=== PATIENT | female | born 1960 | race Caucasian/White ===

== ENCOUNTER → 2019-01-31 12:30 | Outpatient (CLI) | payer OTHER, SELFPAY ==
[2015-08-13 09:16] VITALS: BMI 30.9
--- NOTE | 2019-01-31 12:37 | RAD_ITS ---
STUDY: X-RAY CHEST REASON FOR EXAM: Female, 58 years old. Dyspnea on exertion TECHNIQUE: PA and lateral COMPARISON: None. FINDINGS: The lungs are clear and expanded. There is no demonstrated pleural abnormality. Normal size heart. Normal mediastinum. Mild left hilar asymmetry. Normal visualized pulmonary arteries. Normal visualized aortic arch and descending thoracic aorta. Dorsal spine demonstrates mild scoliosis and degenerative change. Normal visualized ribs, clavicles, and shoulders. There is no demonstrated abnormality of the visualized soft tissue structures of the upper abdomen. RAD/Chest PA and Lateral IMPRESSION: Mild left hilar asymmetry possibly representing enlarged nodes. CT would be helpful for more definitive evaluation. No acute cardiopulmonary pathology Electronically Signed: Feliz Rojas MD at 19:29 EDT , Service support ,
[2019-01-31 14:10] LABS: Absolute Lymphocyte Count 1.25 X10^3/uL (0.83-4.51); Basophil# 0.04 X10^3/uL; Basophil% 0.8 % (0-1); Eosinophil# 0.13 X10^3/uL; Eosinophils% 2.7 % (0-5); Hemoglobin 12.9 g/dL (12.0-15.0); Lymphocyte # 1.25 X10^3/ul (4.0); Lymphocyte % 25.7 % (19-41); Mean Corp Hgb Conc 33.9 g/dL (32-36); Mean Corpuscular Hgb 29.7 pg (27.0-32.0); Mean Corpuscular Volume 87.6 fL (81-99); Mean Platelet Vol. 10.1 fl (6.2-12.0); Monocyte# 0.47 X10^3/uL; Monocyte% 9.7 % (0-10); NRBC Flagged by Analyzer 0 % (0-5); Neutrophil # 2.97 X10^3/uL (2.7-7.7); Neutrophil % 60.9 % (47-70); Platelet Count 261 K/mm3 (150-450); RBC Distribution Width SD 41.1 fl (35.1-43.9); Red Blood Count 4.34 M/mm3 (4.2-5.4); White Blood Count 4.9 K/mm3 (4.4-11.0)
[2019-01-31 14:30] LABS: ALB/GLOB Ratio 1.2 RATIO (0.9-2.4); AST(SGOT) 23 U/L (15-37); Alanine Aminotransfer ALT/SGPT 48 U/L (13-56); Albumin, Serum 3.8 g/dL (3.2-5.0); Alkaline Phosphatase 111 U/L (45-117); Anion Gap 7 (5-15); BUN 17 mg/dL (7-18); Calcium,Total 8.7 mg/dL (8.5-10.1); Chloride 110 mmol/L (98-107); Cholesterol 232 mg/dL (200); Creatinine, Serum 0.63 mg/dL (0.55-1.02); EST Glomerular Filtration Rate 104 mL/min (>60); Est Glom Filt Rate - Afr Amer 126 mL/min (>60); Ferritin 67 ng/mL (8-252); Free T3 2.2 pg/mL (2.18-3.98); Globulin 3.3 g/dL (2.2-4.2); Glucose 88 mg/dL (74-106); High Density Lipoprotein 54 mg/dL; Magnesium 2.1 mg/dL (1.6-2.6); Potassium 4.1 mmol/L (3.5-5.1); Protein, Total 7.1 g/dL (6.4-8.2); Sodium Level 144 mmol/L (136-145); T4 Free Direct 0.92 ng/dL (0.76-1.46); Thyroid Stim Hormone (TSH) 2.36 uIU/mL (0.358-3.74); Triglycerides 207 mg/dL; Very Low Density Lipoprotein 41 mg/dL (5-40)
[2019-02-01 13:02] LABS: Thyroid Peroxidase AB 10 IU/mL (0-34)
[2019-02-02 09:32] LABS: ANTINUCLEAR ANTIBODIES DIRECT Positive (Negative)
[2019-02-05 13:26] LABS: CRP 6.19 mg/L (0.0-3.0)
[2019-02-06 20:08] LABS: Angiotensin Convert Enzyme 44 U/L (14-82); Anti-Centromere B Ab <0.2 AI (0.0-0.9); Anti-Chromatin 0.5 AI (0.0-0.9); Anti-Jo <0.2 AI (0.0-0.9); Anti-Scleroderma-70 AB <0.2 AI (0.0-0.9); RNP Ab 0.3 AI (0.0-0.9); SJOGREN'S Anti-SS-A test > 8.0 AI (0.0-0.9); SJOGREN'S Anti-SS-B test 0.2 AI (0.0-0.9); Smith Ab 2.5 AI (0.0-0.9)
[2019-02-07 13:11] LABS: Anti-dsDNA Ab <1 IU/mL (0-9)
== END ==
PROVIDERS: Family Provider Family Medicine; PCP Family Medicine; Referring Provider Family Medicine; Visit Provider Family Medicine
DX: R06.09 Other forms of dyspnea (principal); E07.9 Disorder of thyroid, unspecified; R00.2 Palpitations; M19.049 Primary osteoarthritis, unspecified hand; R59.0 Localized enlarged lymph nodes; R76.8 Other specified abnormal immunological findings in serum
CPT/HCPCS: 36415; 71046; 80053; 80061; 82164; 82728; 83735; 84238; 84439; 84443; 84481; 85025; 86038; 86140; 86225; 86235; 86376

== ENCOUNTER → 2019-02-15 14:00 | Outpatient (CLI) | payer OTHER, SELFPAY ==
--- NOTE | 2019-02-15 14:11 | CT_ITS ---
STUDY: CT CHEST WITH CONTRAST REASON FOR EXAM: Female, 58 years old. Abnormal chest x-ray RADIATION DOSAGE (If Supplied By Facility): CTDIvol = ( 13.57 ) mGy, DLP = ( 438.86 ) mGycm TECHNIQUE: Transaxial imaging was performed following intravenous administration of 100 IV Isovue 370. Individualized dose optimization techniques were used for this CT. COMPARISON: 01/31/2019 FINDINGS: Ruptured right breast implant. The lungs are normal. There is no demonstrated pleural abnormality. Normal heart and pericardium. Normal mediastinum. Normal hilar regions. Normal enhanced pulmonary arteries. Normal aorta arch and descending thoracic aorta. Normal osseous structures. There is no demonstrated abnormality of the visualized upper abdomen. CT/Chest WITH Contrast IMPRESSION: Normal enhanced CT Chest examination. No left hilar mass as suggested on recent chest x-ray. Electronically Signed: Inocente Milton MD at 15:21 EDT Tel , Service support ,
== END ==
PROVIDERS: Family Provider Family Medicine; PCP Family Medicine; Referring Provider Family Medicine; Visit Provider Family Medicine
DX: R59.0 Localized enlarged lymph nodes (principal)
CPT/HCPCS: 71260; Q9967

== ENCOUNTER → 2020-05-16 14:57 | Outpatient (CLI) | payer OTHER, SELFPAY ==
[2020-05-16 13:00] VITALS: BMI 32.1
== END ==
PROVIDERS: PCP Family Medicine; Referring Provider Physician Assistant Medical; Visit Provider Physician Assistant Medical
DX: Z11.59 Encounter for screening for other viral diseases (principal)
CPT/HCPCS: 87635; U0003

== ENCOUNTER 2020-09-05 22:31 | Emergency (ER) | payer OTHER, SELFPAY ==
[2020-05-16 13:00] VITALS: BMI 32.1
[2020-09-05 22:32] VITALS: BP 134/74; PULSE 82; RESP 16; TEMP 35.9; O2SAT 97; BMI 29.2
--- NOTE | 2020-09-05 22:47 | RAD_ITS ---
STUDY: X-RAY - RIGHT HAND REASON FOR EXAM: Female, 60 years old. dog bite TECHNIQUE: 3 view(s) of the hand. COMPARISON: None. FINDINGS: Normal radiocarpal articulation. Normal distal radioulnar joint. Normal visualized carpal bones. Normal carpal articulations Normal carpometacarpal articulation of the thumb. Normal second through fifth carpometacarpal joints. Normal metacarpi. No visualized fracture. Normal joints. Minor cortical spurring seen in several digits. Soft tissue swelling and lucency seen adjacent to the radius could be related to direct trauma/laceration injury. RAD/Hand Min 3 Views IMPRESSION: Soft tissue swelling and lucency seen adjacent to the radius could be related to direct trauma/laceration injury. Electronically Signed: Idris Lerma MD at 23:12 EDT , Service support ,
--- NOTE | 2020-09-05 22:47 | ED.VIS.GEN ---
History of Present Illness Chief Complaint: Bite Informant: Patient Onset: Today Current Severity: Mild Maximum Severity: Mild Narrative: Patient presents with dog bite to the right hand. 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 She was bit by an older dog. She has 3 injuries to her right hand. Patient is right-hand dominant. Past Medical History - Allergies and Home Meds Allergies/Adverse Reactions: Allergies No Known Allergies Allergy (Verified 09/05/20 22:36) Primary Care Physician: Joseluis Nelson MD [Primary Care Provider] - Past Medical History: None Smoking Status: Never smoker Review of Systems General: Denies: Chills, Fever Eyes: Denies: Visual changes - bilaterally ENT: Denies: Bilateral ear pain Cardiovascular: Denies: Chest pain Respiratory: Denies: Dyspnea, Cough Gastrointestinal: Denies: Abdominal pain Musculoskeletal: Reports: Extremity Pain Skin: Reports: Wounds Neurological: Denies: Headache, Weakness, Parasthesia Hematologic: Denies: Easy bruising, Easy bleeding Allergy: Denies: Uticaria Physical Exam Vital Signs/Narrative: Vital Signs Temp Pulse Resp BP Pulse Ox 09/05/20 22:32 96.7 F L 82 16 134/74 H 97 Inital Vital Signs reviewed: Yes General: Well nourished, Well developed Head: Normocephalic Cardiovascular: Regular rate, Regular rhythm Respiratory: No distress Extremities: - - Patient has 2 linear lacerations to the back of her right hand. One is measuring 1.5 cm and the other measures 0.75 cm. There is a 0.5 cm long abrasion to the extensor surface of the right fourth finger at the PIP joint. Full range of motion without difficulty. Neurological: Alert, Oriented x3, Normal Strength, Normal Sensation Psychological: Normal affect Diagnostic/Tx/Re-eval Right hand x-ray per my review reveals no evidence of foreign body. No bony injury. - Medical Decision Making Right hand wounds are cleansed. The larger wound is closed with a Steri-Strip. Patient is given a dose of Augmentin here and we get a prescription for 3 days of Augmentin at home. Tetanus is up-to-date. ED Disposition - Plan for ED Patient: Disposition: Home or Assisted Living Diagnosis: Dog bite of hand Instructions: ED Dog Bite Prescriptions: Amox/Clavulanate Tablet [Augmentin Tablet] 875 mg PO Q12H #6 tablet Referrals: Joseluis Nelson MD [Primary Care Provider] - [facility] [GROUP OF PHYSICIANS] -
[2020-09-05] MEDS: Amox/Clavulanate 875 MG Tablet PO (23:11)
[2020-09-05 23:49] VITALS: RESP 16
== END 2020-09-05 23:49 | disposition home or self-care (01) ==
PROVIDERS: Emergency Provider Emergency Medicine; PCP Family Medicine
DX: S61.451A Open bite of right hand, initial encounter (principal); W54.0XXA Bitten by dog, initial encounter
CPT/HCPCS: 73130; 99282

== ENCOUNTER 2022-02-24 08:26 | Emergency (ER) | payer OTHER, SELFPAY ==
[2022-02-24 08:26] VITALS: BP 108/71; PULSE 78; RESP 16; TEMP 36.6; O2SAT 100; BMI 30.2
--- NOTE | 2022-02-24 08:50 | RAD_ITS ---
STUDY: X-RAY - RIGHT ANKLE REASON FOR EXAM: Right ankle injury. TECHNIQUE: 4 view(s) of the ankle. COMPARISON: None. FINDINGS: Normal visualized distal tibia and fibula. There is a small corticated ossicle at the distal aspect of the medial malleolus, likely from remote injury. Normal tibiotalar articulation and ankle mortise. There is a prominent osseous erosion of the posterior aspect of the posterior tuberosity of the calcaneus. There is a small os trigonum. The visualized subtalar, talonavicular, calcaneocuboid and tarsal articulations are normal. There is soft tissue swelling overlying the lateral malleolus. RAD/Ankle min 3 Views IMPRESSION: Prominent osseous erosion of the posterior tuberosity of the calcaneus, possibly representing osteomyelitis. Soft tissue swelling. Small ossicle at the distal aspect of the medial malleolus. Electronically Signed: Jreemy Bassett MD at 9:40 EDT ,
--- NOTE | 2022-02-24 08:51 | ED.VIS.LOWEX ---
HPI History of Present Illness HPI Narrative: Right heel injury after falling off a hay bale yesterday. Chief Complaint: Lower Extremity Injury Informant: patient Occured/Mechanism Mechanism/Context: Yes injury and Yes blunt trauma Onset/Context/Timing Onset: Yesterday Context: Sudden Onset Timing: Continuous Quality of Pain: Aching Current Severity: Moderate Maximum Severity: Moderate Associated Symptoms Associated Symptoms: Negative for Parasthesia or Weakness Narrative Narrative: [id number] female with no past medical history. History was on top of a hay bale about 4 feet off the barn floor. Emmanuel Cruz moved out from under she fell onto the landing on her right heel. She had no shoe on at the time. Is very difficult to walk on it now due to pain. Denies any other injuries. Did not hit her head. Denies any back pain. Prior similar symptoms: No Recent Illness/Hospitalization: No PFSH PFSH Medical History no medical history no medical history Home Medications hydrocodone-acetaminophen 5-325mg 5mg-325mg 1 tab PO Q4H PRN pain 5 days #20 tabs 02/24/22 [Rx Last Taken Unknown] Allergy/AdvReac Type Severity Reaction Status Date / Time No Known Allergies Allergy Verified 02/24/22 08:29 Social History Smoking Status: Never smoker ROS ROS ED ROS Narrative Denies recent illness. Review of Systems ROS Unobtainable: Denies due to encephalopathy Constitutional Constitutional ED: Denies chills or fever(s) Eyes Eyes: Denies blurry vision ENT ENT ED: Denies ear pain Cardiovascular Cardiovascular: Denies chest pain Respiratory/Chest Respiratory/Chest: Denies cough or dyspnea Gastrointestinal Gastrointestinal: Denies abdominal pain Genitourinary Genitourinary ED: Denies dysuria Musculoskeletal Musculoskeletal: Denies arthralgias Integumentary Denies abscess Neurologic Neurologic: Denies headache(s) Psychiatric Psychiatric: Denies anxiety Endocrine Endocrinology: Denies polydipsia Hematologic/Lymphatic Hematologic/Lymphatic: Denies easy bleeding Allergic/Immunologic Allergic/Immunologic ED: Denies mouth swelling EXAM Physical Exam Narrative Exam Narrative: Well-appearing 61-year-old female. No acute distress. Vital signs stable afebrile. H EENT exam unremarkable atraumatic. C-spine and neck nontender. Normal range of motion. Back and spine nontender. Lungs clear. Heart regular rhythm. Chest were nontender. Pelvic girdle intact. Moving all 4 extremities. Neurovascular intact. Normal range of motion. The right hip knee and ankle are nontender normal range of motion. Normal DP pulse. Her right heel is tender to palpation. There is mild swelling. The foot otherwise is nontender with normal DP pulse. Able to wiggle her toes. Normal touch sensation. Neurologic exam normal. GCS of 15. Const Vital Signs: 02/24/22 08:26 Temperature 97.9 F Temperature Source Temporal Pulse Rate 78 Respiratory Rate 16 Blood Pressure 108/71 Blood Pressure Mean 83 Pulse Ox 100 Oxygen Delivery Method Room Air Positive well nourished and well developed; Negative for obese, cachectic, contractures or unkempt General Appearance ED: well developed and NAD; Negative for unkempt, cachectic or contractures Nutritional Appearance: Negative for cachectic or obese HEENT Reports moist mucous membranes normocephalic and atraumatic; Negative for trauma or tenderness Eyes PERRL General Eye ED: Negative for other Neck full ROM and supple Thyroid: Negative for tender Lymph Lymphatic: Negative for other Chest Wall inspection of chest normal and palpation of chest normal Chest: Negative for other Resp normal respiratory effort, no retractions and clear to auscultation bilaterally Effort and Inspection: Negative for pain with movement Auscultation: Negative for rales or rhonchi Percussion: Negative for other Cardio regular rate, regular rhythm, S1 normal heart sound, S2 normal heart sound and no murmurs Rate: Negative for bradycardia Rhythm: Negative for abnormal rhythm Bruits: Negative for other GI non-tender, non-distended and no masses Inspection: Negative for abdominal distention Auscultation: normoactive bowel sounds Palpation: soft; Negative for tender or guarding Back/Spine no CVA tenderness General Back: Negative for CVA tenderness Cervical Spine: Negative for cervical spine tenderness Thoracic Spine / Upper Back: Negative for thoracic spinal tenderness Lumbar Spine / Lower Back: Negative for lumbar spinal tenderness Extremity normal to inspection and full ROM Extremity Narrative: Except right heel tender. Swollen. Normal flexion-extension. Achilles intact. Malleolus nontender. Foot otherwise nontender normal DP pulse. Normal touch sensation. Concern for a calcaneus fracture on exam. General Extremety ED: Yes edema and weight-bearing difficulty; Negative for cyanosis General Extremity: edema and weight-bearing difficulty; Negative for cyanosis Neuro oriented x3, CN's II-XII intact bilaterally, moves all extremities and no sensory deficits noted Sensorium / Orientation: alert, oriented to person, oriented to place and oriented to time; Negative for orientation impaired, confused, lethargic or stuporous Motor Exam: strength 5/5 throughout Psych mental status grossly normal Appearance: Negative for unkempt Mood & Affect: Negative for anxious Skin no wounds Lesions: no lesions Rashes: no rashes Trauma: Negative for abrasion or laceration MDM MDM MDM Narrative Medical decision making narrative: 61-year-old 4 foot fall from a bale of hay to a barn floor without any shoes on. Concern for a calcaneus fracture. X-ray being obtained. I spoke to our orthopedic on-call he stated he did not feel that he had the type of screw needed to fix this here. I spoke with the [facility] physician assistant merchandise manager on-call for their airways operations specialist Dr. Mejia and they will see her in follow-up. Patient was placed in a well-padded short leg posterior Ortho-Glass splint and plantar flexion position. She tolerated well. She knows she cannot do any weightbearing. She will be discharged with crutches and Flora for pain. Radiography Diagnostic Testing: Clinical Impression(s) from Imaging Studies Ankle X-Ray 02/24/22 08:50 IMPRESSION: Prominent osseous erosion of the posterior tuberosity of the calcaneus, possibly representing osteomyelitis. Soft tissue swelling. Small ossicle at the distal aspect of the medial malleolus. Electronically Signed: Jeremy Bassett MD at 9:40 EDT , Lower Extremity CT 02/24/22 10:40 IMPRESSION: Comminuted and mildly displaced fracture of the calcaneus. Soft tissue swelling in the right foot. Electronically Signed: Sally Quezada MD at 11:10 EDT , Right ankle x-ray 3 view shows a calcaneus fracture. Interpreted by myself and the radiologist. Radiologist is concerned this may be a chronic issue and not an acute fracture. I did obtain a CAT scan which showed a mildly displaced comminuted calcaneus fracture. Procedures Lower Extremity Splints Lower Extremity Splint: Orthoglass Splint Fabrication: Fabricated Location: Right Discharge Plan Triage Chief Complaint: Lower Extremity Injury ED Provider: Eliot Worthy Dx/Rx/DC Orders Clinical Impression: Calcaneus fracture, Fall Instructions: Calcaneus Prescriptions: New hydrocodone-acetaminophen 5-325 mg tablet 1 tab PO Q4H PRN (Reason: pain) 5 Days Qty: 20 0RF Primary Care Provider: Joseluis Nelson Referrals: Lilo Mejia MD [Non-Staff] - As soon as possible Joseluis Nelson MD [Primary Care Provider] - Activity Restrictions/Additional Instructions: Call and follow-up with Dr. Lilo Mejia of [facility] ankle and airways operations specialist soon as possible. Call their office today to get an appointment. You have a fracture of your heel called a comminuted calcaneus fracture No weightbearing. Ice and elevate. Keep the splint dry and clean. Keep the splint on. Motrin and Tylenol for pain. If you need stronger pain medication use the Flora. Disposition Disposition: Home, Self Care
--- NOTE | 2022-02-24 10:40 | CT_ITS ---
HISTORY: heel trauma question fracture. TECHNIQUE: Helically acquired images were obtained of the right ankle and foot without contrast. 2-D reformats were performed by the technologist. A radiation dose optimization technique was used for this scan. 280 images. COMPARISON: XR same day. FINDINGS: BONES: Horizontally oriented, comminuted, and mildly distracted fracture of the calcaneus extending through the body and tuberosity. JOINT SPACES: No dislocation. Mild degenerative changes. Small osteophytes present. SOFT TISSUES: Surrounding soft tissue swelling. CT/Extremity Lower without Contra IMPRESSION: Comminuted and mildly displaced fracture of the calcaneus. Soft tissue swelling in the right foot. Electronically Signed: Sally Quezada MD at 11:10 EDT ,
== END 2022-02-24 13:15 | disposition home or self-care (01) ==
PROVIDERS: Emergency Provider Emergency Medicine; PCP Family Medicine; Visit Provider Emergency Medicine
DX: S92.001A Unspecified fracture of right calcaneus, initial encounter for closed fracture (principal); W19.XXXA Unspecified fall, initial encounter
CPT/HCPCS: 73610; 73700; 99282

== ENCOUNTER 2023-08-10 06:54 | Day surgery (SDC) | payer OTHER, SELFPAY ==
[2023-08-10] MEDS: Lactated Ringers 1,000 ML 15 ML IV (07:30)
--- NOTE | 2023-08-10 07:31 | PCM.HP.STD ---
[facility] - General General Date of Admission: 08/10/23 Date of Service: 08/10/23 Chief Complaint: Screening colonoscopy HPI Narrative SONI ARIZA, is a 62 F who presents today for screening colonoscopy. She has not had a colonoscopy in the past. She is not have any abdominal pain. Is not any cramping. She not have any chest pain shortness of breath. She denies any weakness. She does not take any medicines on daily basis. Overall she is in very good health. 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 Smoking Status: Never smoker ROS Review of Systems ROS Unobtainable: other Constitutional Constitutional: Denies fatigue, fever(s), poor appetite, weight gain or weight loss ENT HEENT: Denies mouth lesions Cardiovascular Cardiovascular: Denies abdominal bloating, abdominal edema or abdominal pain Respiratory/Chest Respiratory/Chest: Denies change in mental status, change in phlegm color, chest congestion or chest tightness Gastrointestinal Gastrointestinal: Denies belching, bloating, change in bowel habits, change in stool character, chewing difficulty, coffee ground emesis, constipation, cramping, diarrhea, dyspepsia, dysphagia, early satiety, excessive flatus, fecal incontinence, heartburn, hematemesis, hematochezia, hemorrhoids, loose stools, melena, nausea, odynophagia, rectal bleeding, tenesmus, vomiting or weight changes Genitourinary Genitourinary: Denies abdominal discomfort, burning urination or itching Musculoskeletal Musculoskeletal: Reports as per HPI; Denies muscle weakness or myalgias Integumentary Integumentary: Denies jaundice Neurologic Neurologic: Denies lack of coordination or weakness Psychiatric Psychiatric: Denies confusion, depression, memory loss, mood swings, paranoia or suicidal ideation Endocrine Endocrinology: Denies systems reviewed and no addt'l complaints, except as documented Hematologic/Lymphatic Hematologic/Lymphatic: Denies anemia, easy bleeding, easy bruising or lymphadenopathy Allergic/Immunologic Allergic/Immunologic: Denies systems reviewed and no addt'l complaints, except as documented Physical Exam Const alert General Appearance: cooperative Orientation / Consciousness: oriented to person HEENT hearing grossly normal bilaterally Head and Scalp: normal to inspection Face and Sinus: face symmetric Nose: external nose normal Mouth: oral and palatal mucosa normal Eyes conjunctivae normal General Eye: normal appearance of both eyes Neck full ROM General: normal visual inspection Lymph Lymphatic: no lymphadenopathy noted Chest inspection of chest normal and palpation of chest normal Chest: symmetrical chest wall rise Resp normal respiratory effort Effort and Inspection: able to speak in complete sentences Cardio regular rate GI non-distended Percussion: normal to percussion Rectal Exam: deferred Neuro Speech: speech normal Gait (Neuro): normal gait Assessment & Plan Assessment/Plan (1) Encounter for screening for malignant neoplasm of colon: PLAN: She was explained alternatives including not withstanding bleeding, infection, sepsis, perforation, need for emergent surgery and . She will have an ASA of 3.
[2023-08-10 07:33] VITALS: BP 115/63; PULSE 73; RESP 16; TEMP 37; O2SAT 97; BMI 29.9
[2023-08-10 08:27] VITALS: BP 115/63; BP 79/69; PULSE 67; RESP 16; TEMP 36.1; O2SAT 96
--- NOTE | 2023-08-10 08:27 | OP.COLON_ITS ---
Patient Name: Yamini Stafford Procedure Date: 08/10/2023 8:02 AM Date of : 1960 Age: 62 Procedure: Colonoscopy Indications: Screening for colorectal malignant neoplasm Providers: Jhon Bone DO Medicines: Monitored Anesthesia Care Patient Profile: This is a 62 year old female. Refer to note in patient chart for documentation of history and physical. Last Colonoscopy: none. The patient's first colonoscopy is today. Complications: No immediate complications. Procedure: Pre-Anesthesia Assessment: - Prior to the procedure, a History and Physical was performed, and patient medications and allergies were reviewed. The patient is competent. The risks and benefits of the procedure and the sedation options and risks were discussed with the patient. All questions were answered and informed consent was obtained. Patient identification and proposed procedure were verified by the physician in the pre-procedure area. Mental Status Examination: alert and oriented. Airway Examination: normal oropharyngeal airway and neck mobility. Respiratory Examination: clear to auscultation. CV Examination: normal. Prophylactic Antibiotics: The patient does not require prophylactic antibiotics. Prior Anticoagulants: The patient has taken no anticoagulant or antiplatelet agents. ASA Grade Assessment: III - A patient with severe systemic disease. After reviewing the risks and benefits, the patient was deemed in satisfactory condition to undergo the procedure. The anesthesia plan was to use monitored anesthesia care (MAC). Immediately prior to administration of medications, the patient was re-assessed for adequacy to receive sedatives. The heart rate, respiratory rate, oxygen saturations, blood pressure, adequacy of pulmonary ventilation, and response to care were monitored throughout the procedure. The physical status of the patient was re-assessed after the procedure. After I obtained informed consent, the scope was passed under direct vision. Throughout the procedure, the patient's blood pressure, pulse, and oxygen saturations were monitored continuously. The Colonoscope was introduced through the anus and advanced to the cecum, identified by the appendiceal orifice, ileocecal valve and palpation. The colonoscopy was performed without difficulty. The patient tolerated the procedure well. The quality of the bowel preparation was adequate. The ileocecal valve, appendiceal orifice, and rectum were photographed. Scope In: 8:09:06 AM Scope Withdrawal Time 0 hours 6 minutes 49 seconds Scope Out: 8:21:41 AM Total Procedure Duration Time 0 hours 12 minutes 35 seconds Findings: The perianal and digital rectal examinations were normal. The colon (entire examined portion) appeared normal. No additional abnormalities were found on retroflexion. Impression: - The entire examined colon is normal. - No specimens collected. Recommendation: - Discharge patient to home. - Resume previous diet. - Continue present medications. - Repeat colonoscopy in 10 years for screening purposes. Procedure Code(s): --- Professional --- G0121, Colorectal cancer screening; colonoscopy on individual not meeting criteria for high risk CPT copyright 2021 [employer]. All rights reserved. The codes documented in this report are preliminary and upon ve teacher review may be revised to meet current compliance requirements. Jhon Bone DO 08/10/2023 8:27:47 AM This report has been signed electronically. Number of Addenda: 0 Note Initiated On: 08/10/2023 8:02 AM
--- NOTE | 2023-08-10 08:29 | OP.CCLET_ITS ---
08/10/2023 Joseluis Nelson [address] [place] [address] Re : Colonoscopy procedure for Yamini Stafford Dear Dr. Nelson This procedure was performed on August. My impressions and recommendations are as follows: Impressions : - The entire examined colon is normal. - No specimens collected. Recommendations : - Discharge patient to home. - Resume previous diet. - Continue present medications. - Repeat colonoscopy in 10 years for screening purposes. My findings are described in the full procedure note, which is enclosed. If I can be of further assistance, please feel free to contact me at . Sincerely, Jhon Bone, 08/10/2023 8:27:47 AM This report has been signed electronically.
[2023-08-10 08:30] VITALS: BP 115/63; BP 88/54; PULSE 68; RESP 16; O2SAT 97
[2023-08-10 08:35] VITALS: BP 115/63; BP 92/61; PULSE 68; RESP 16; O2SAT 97
[2023-08-10 08:41] VITALS: BP 115/63; BP 92/60; PULSE 64; RESP 16; TEMP 36.1; O2SAT 94
[2023-08-10 08:55] VITALS: BP 115/63
== END 2023-08-10 09:05 | disposition home or self-care (01) ==
LOC: EN 06:55 → AC 06:56
PROVIDERS: PCP Family Medicine; Referring Provider Family Medicine; Visit Provider Internal Medicine Gastroenterology
PROC: 0DJD8ZZ Inspection of Lower Intestinal Tract, Via Natural or Artificial Opening Endoscopic (ICD-10-PCS; CPT 45378; principal; 2023-08-10 08:10)
DX: Z12.11 Encounter for screening for malignant neoplasm of colon (principal)
CPT/HCPCS: G0121; J7120; J2405